=== PATIENT | male | born 1935 | race Caucasian/White ===

== ENCOUNTER 2018-07-28 14:00 | Emergency (ER) | payer MEDICARE, BC ==
[~2018-07-28] VITALS: Ht 182.9 cm; Wt 68.9 kg
[2018-07-28] MEDS ORDERED: TDAP [DIPH/PERTUSSIS/TET] 0.5 ML VIAL IM ONE ×2 (14:30→15:10)
[2018-07-28] MEDS ORDERED: CEFAZOLIN 2 GM in IV D5W 100 ML IV ONE (14:30)
--- NOTE | 2018-07-28 14:30 | NUR ---
GLF, TRIPPED WHILE TAKING OUT GARBAGE, -KO, -BV,HEMATOMA R FOREHEAD, R WRIST PAIN & RT HAND SKIN TEAR. PT AAOX4, VSS. DENIES ANY OTHER DISCOMFORT @ THIS TIME. PT SEEN & EVAL'D BY DR. TURNER & WILL CONT TO MONITOR.
--- NOTE | 2018-07-28 14:34 | NUR ---
PT TO CT VIA [facility].
[2018-07-28 14:36] LABS: BASOPHILS % (AUTO) 0.3 % (0.0-2.0); EOSINOPHILS % (AUTO) 0.5 % (0.0-6.0); HEMATOCRIT 39 % (39-51); HEMOGLOBIN 13.3 g/dL (13.5-17.5); LYMPHOCYTES # (AUTO) 0.7 /CMM (0.8-4.8); LYMPHOCYTES % (AUTO) 9.6 % (20.0-44.0); MEAN CORPUSCULAR HGB CONC 34 g/dl (31.0-36.0); MEAN CORPUSCULAR VOLUME 94 fL (80-96); MONOCYTES # (AUTO) 0.6 /CMM (0.1-1.30); MONOCYTES % (AUTO) 8.1 % (2.0-12.0); NEUTROPHILS # (AUTO) 6.3 /CMM (1.8-8.9); NEUTROPHILS % (AUTO) 81.5 % (43.0-81.0); PLATELET COUNT (AUTO) 207 /CMM (150-450); RED BLOOD CELL COUNT(AUTO) 4.14 MIL/uL (4.5-6.0); WHITE BLOOD COUNT (AUTO) 7.7 K/uL (4.3-11.0)
[2018-07-28 14:49] LABS: CALCIUM, SERUM 9.6 mg/dL (8.5-10.1); CARBON DIOXIDE 26 mmol/L (21-32); CHLORIDE 95 mmol/L (98-107); GLUCOSE 107 mg/dL (74-106); POTASSIUM 4.2 mmol/L (3.5-5.1); SODIUM SERUM 132 mmol/L (136-145); UREA NITROGEN, BLOOD 21 mg/dL (7-18)
[2018-07-28 14:53] LABS: ALANINE AMINOTRANSFERASE 27 U/L (12-78); ALBUMIN 3.1 g/dL (3.4-5.0); ALKALINE PHOSPHATASE 101 U/L (46-116); ASPARTATE AMINOTRANSFERASE 18 U/L (15-37); BILIRUBIN,DIRECT 0.3 mg/dL (0.0-0.2); BILIRUBIN,TOTAL 0.9 mg/dL (0.2-1.0); TOTAL PROTEIN, SERUM 6.6 g/dL (6.4-8.2)
--- NOTE | 2018-07-28 15:30 | NUR ---
YAMILEX SNOW FOR LAC REPAIR.
--- NOTE | 2018-07-28 16:57 | NUR ---
Patient discharged to home in stable condition. Written and verbal after care instructions given. Patient verbalizes understanding of instruction. IV removed. Catheter intact and site benign. Pressure and 4x4 applied to site. No bleeding noted.
[2018-07-28 16:58] VITALS: BP 142/82
== END 2018-07-28 16:59 | disposition home or self-care (01) ==
LOC: ER 14:07
DX: S01.01XA Laceration without foreign body of scalp, initial encounter (principal); S61.511A Laceration without foreign body of right wrist, initial encounter; S80.01XA Contusion of right knee, initial encounter; I10 Essential (primary) hypertension; Z98.890 Other specified postprocedural states; Z60.2 Problems related to living alone; W01.0XXA Fall on same level from slipping, tripping and stumbling without subsequent striking against object, initial encounter; Y93.89 Activity, other specified; Y92.89 Other specified places as the place of occurrence of the external cause; Y99.8 Other external cause status
CPT/HCPCS: 36415; 70450-TC; 72125-TC; 73110; 80048-TC; 80076-TC; 84484-TC; 85025-TC; 85730-TC; 90715; A6402; A6403; J0690; J7060

== ENCOUNTER 2018-08-05 14:48 | Emergency (ER) | payer MEDICARE, BC ==
[~2018-08-05] VITALS: Ht 177.8 cm; Wt 90.7 kg
[2018-08-05 14:53] VITALS: BP 133/56
[2018-08-05] MEDS ORDERED: BACI/NEOM/POLY B OINT PKT 1 UDPKT PACKET ONE (15:37)
== END 2018-08-05 15:43 | disposition home or self-care (01) ==
LOC: ER 14:49
DX: S01.81XD Laceration without foreign body of other part of head, subsequent encounter (principal); S61.511D Laceration without foreign body of right wrist, subsequent encounter; I10 Essential (primary) hypertension; Z98.890 Other specified postprocedural states; Z60.2 Problems related to living alone; X58.XXXD Exposure to other specified factors, subsequent encounter
CPT/HCPCS: 99282; A4606; A6402 ×2

== ENCOUNTER 2018-08-11 17:10 | Emergency (ER) | payer MEDICARE, BC ==
[~2018-08-11] VITALS: Ht 180.3 cm; Wt 90.7 kg
[2018-08-11 17:38] VITALS: BP 145/71
--- NOTE | 2018-08-11 18:50 | NUR ---
RIGHT HAND WOUND, CLEANED, DRESSSED, ANTIBIOTIC OINTMENT
== END 2018-08-11 18:50 | disposition home or self-care (01) ==
LOC: ER 17:30
DX: L03.113 Cellulitis of right upper limb (principal); I10 Essential (primary) hypertension; Z98.890 Other specified postprocedural states; Z60.2 Problems related to living alone
CPT/HCPCS: 99283; A4606; A6402

== ENCOUNTER 2018-08-14 14:14 | Emergency (ER) | payer MEDICARE, BC ==
[~2018-08-14] VITALS: Ht 177.8 cm; Wt 90.7 kg
[2018-08-14 14:14] VITALS: BP 150/105
== END 2018-08-14 15:35 | disposition home or self-care (01) ==
LOC: ER 14:16
DX: L03.113 Cellulitis of right upper limb (principal); I10 Essential (primary) hypertension; Z86.12 Personal history of poliomyelitis; Z98.890 Other specified postprocedural states; Z60.2 Problems related to living alone
CPT/HCPCS: 99283; A4606; A6402